=== PATIENT | female | born 1985 | race Caucasian/White ===

== ENCOUNTER 2021-06-28 09:18 | Inpatient (IN) ==
[2021-06-28] MEDS ORDERED: *HR* Propofol 200 MG/20 ML VIAL IVP ONE (09:39)
[2021-06-28] MEDS ORDERED: *HR* FentaNYL (PF) 100 MCG/2 ML VIAL ONE (09:39)
[2021-06-28] MEDS ORDERED: *HR* Succinylcholine 200 MG/10 ML VIAL IVP ONE (09:39)
[2021-06-28] MEDS ORDERED: *HR* Rocuronium Bromide 50 MG/5 ML VIAL ONE (09:39)
[2021-06-28] MEDS ORDERED: Acetaminophen IV 1,000 MG/100 ML BAG IVPB ONE (09:46)
[2021-06-28] MEDS ORDERED: Ketorolac 30 MG/ML VIAL ONE (09:46)
[2021-06-28] MEDS ORDERED: Ropivacaine/PF 0.2% 20 ML VIAL ONE ×2 (10:04→10:05)
[2021-06-28] MEDS ORDERED: Ondansetron 4 MG/2 ML VIAL ONE (10:06)
[2021-06-28] MEDS ORDERED: Ondansetron 4 MG/2 ML VIAL IVP PRN ×2 (10:48→13:03)
[2021-06-28] MEDS: *HR* HYDROmorphone PF 0.5 MG/0.5 ML SYRINGE IVP PRN ×4 (10:58→12:30)
[2021-06-28] MEDS ORDERED: Metoclopramide 10 MG/2 ML VIAL IVP ONE (11:01)
[2021-06-28] MEDS ORDERED: Ringers Solution, Lactated 1,000 ML IVC ONE (11:01)
[2021-06-28] MEDS ORDERED: Famotidine 20 MG/2 ML VIAL IVP ONE (11:01)
[2021-06-28] MEDS ORDERED: Ringers Solution, Lactated 1,000 ML IVC SCH (11:15)
[2021-06-28 11:32] LABS: Basophils % 0.2 %; Eosinophils % 0.1 %; Hematocrit 38.4 % (35.3-44.9); Hemoglobin 12.3 g/dL (11.5-15.4); Lymphocytes # 1.4 K/mcL (0.6-4.6); Lymphocytes % 7.6 %; Mean Corpuscular Hemoglobin 28.3 pg (28.0-33.3); Mean Corpuscular Volume 88.5 fL (83.0-100.0); Monocytes # 0.7 K/mcL (0.0-1.3); Monocytes % 3.7 %; Neutrophils # 15.8 K/mcL (1.6-8.9); Platelet Count 226 K/mcL (140-400); Red Blood Count 4.34 M/mcL (3.82-4.97); Red Cell Distribution Width 13.6 % (11.5-14.5); Segmented Neutrophils % 87.4 %; White Blood Count 18.1 K/mcL (4.3-11.1)
[2021-06-28 12:00] LABS: Alanine Aminotransferase 30 Units/L (7-52); Aspartate Amino Transferase 27 Units/L (13-39); BUN/Creatinine Ratio 13 (6-26); Blood Urea Nitrogen 8 mg/dL (6-20); Glucose 110 mg/dL (70-105); Lactate Dehydrogenase 160 Units/L (140-271); Uric Acid 5.4 mg/dL (2.3-7.6); eGFR For African Americans > 60 (> 60); eGFR For Non-African Americans > 60 (> 60)
[2021-06-28] MEDS ORDERED: Naloxone 0.4 MG/ML INJ IVP PRN ×2 (13:03)
[2021-06-28] MEDS ORDERED: Oxytocin 20 units/ LR 1000 mL 20 UNIT/1,000 ML BAG IVC SCH (13:03)
[2021-06-28] MEDS ORDERED: Simethicone 80 MG TAB.CHEW PO PRN (13:03)
[2021-06-28] MEDS ORDERED: Rho Immune Globulin 1,500 UNIT SYRINGE IM ONE (13:03)
[2021-06-28] MEDS ORDERED: Morphine PCA 30 MG/ 30 ML 30 ML PCA.VIAL IVC PRN (13:03)
[2021-06-28] MEDS ORDERED: 0.9 % Sodium Chloride 1,000 ML IVC SCH (13:03)
[2021-06-28] MEDS ORDERED: Metoclopramide 10 MG/2 ML VIAL IVP PRN (13:03)
[2021-06-28] MEDS ORDERED: Ibuprofen 600 MG TABLET PO SCH (13:19)
[2021-06-28 14:04] LABS: Amphetamine Screen,Urine Negative ng/mL (Cutoff=1000); Barbiturate Screen,Urine Negative ng/mL (Cutoff=200); Benzodiazepines Screen,Urine Negative ng/mL (Cutoff=200); Cannabinoid Screen,Urine Negative ng/mL (Cutoff = 50); Cocaine Screen,Urine Negative ng/mL (Cutoff= 300); Creatinine,Urine 123 mg/dL; Opiate Screen,Urine Negative ng/mL (Cutoff=300); Phencyclidine Screen,Urine Negative ng/mL (Cutoff=25); Protein/Creatinine Ratio,Urine 0.18 mg/mg (0.00-0.20)
[2021-06-28] MEDS: Acetaminophen 325 MG TABLET PO SCH (17:03)
[2021-06-28] MEDS: cephALEXin 500 MG CAPSULE PO SCH ×2 (17:04→19:41)
[2021-06-28] MEDS: metroNIDAZOLE 500 MG TABLET PO SCH ×2 (17:05→19:41)
[2021-06-28] MEDS: Oxytocin 20 units/ LR 1000 mL 20 UNIT/1,000 ML BAG IVC SCH (17:05)
[2021-06-28] MEDS: *HR* OxyCODONE Immed Rel 5 MG TABLET PO PRN (18:34)
[2021-06-28] MEDS: *HR* Enoxaparin 80 MG/0.8 ML SYRINGE SQ SCH (20:05)
[2021-06-29] MEDS: Acetaminophen 325 MG TABLET PO SCH ×5 (00:14→21:38)
[2021-06-29] MEDS: Oxytocin 20 units/ LR 1000 mL 20 UNIT/1,000 ML BAG IVC SCH (00:15)
[2021-06-29] MEDS: *HR* OxyCODONE Immed Rel 5 MG TABLET PO PRN ×3 (04:26→21:15)
[2021-06-29 06:41] LABS: Basophils % 0.2 %; Eosinophils % 0.2 %; Hematocrit 28.9 % (35.3-44.9); Immature Granulocytes % 0.7 % (0-4); Lymphocytes # 2.7 K/mcL (0.6-4.6); Lymphocytes % 17.8 %; Mean Corpuscular HGB Conc 32.9 g/dL (31.6-35.5); Mean Corpuscular Hemoglobin 28.7 pg (28.0-33.3); Mean Corpuscular Volume 87.3 fL (83.0-100.0); Mean Platelet Volume 10.6 fL (9.4-12.4); Monocytes # 0.9 K/mcL (0.0-1.3); Monocytes % 5.9 %; Neutrophils # 11.4 K/mcL (1.6-8.9); Platelet Count 203 K/mcL (140-400); Red Blood Count 3.31 M/mcL (3.82-4.97); Red Cell Distribution Width 13.5 % (11.5-14.5); Segmented Neutrophils % 75.2 %; White Blood Count 15.2 K/mcL (4.3-11.1)
[2021-06-29 06:42] LABS: Hemoglobin 9.5 g/dL (11.5-15.4)
[2021-06-29] MEDS: *HR* Enoxaparin 80 MG/0.8 ML SYRINGE SQ SCH ×2 (08:42→21:15)
[2021-06-29] MEDS: Prenatal Vit/FA 1 EACH TABLET PO SCH (08:43)
[2021-06-29] MEDS: metroNIDAZOLE 500 MG TABLET PO SCH ×3 (08:43→21:15)
[2021-06-29] MEDS: cephALEXin 500 MG CAPSULE PO SCH ×3 (08:43→21:15)
[2021-06-29] MEDS ORDERED: Ringers Solution, Lactated 500 ML IVC ONE (09:38)
[2021-06-30] MEDS: *HR* OxyCODONE Immed Rel 5 MG TABLET PO PRN ×3 (01:16→11:08)
[2021-06-30] MEDS: Acetaminophen 325 MG TABLET PO SCH ×2 (05:30→11:08)
[2021-06-30 07:48] VITALS: BP 110/59; PULSE 72; TEMP 98.3; O2SAT 96
[2021-06-30] MEDS: *HR* Enoxaparin 80 MG/0.8 ML SYRINGE SQ SCH (09:21)
[2021-06-30] MEDS: Prenatal Vit/FA 1 EACH TABLET PO SCH (09:22)
[2021-06-30] MEDS: metroNIDAZOLE 500 MG TABLET PO SCH (09:22)
[2021-06-30] MEDS: cephALEXin 500 MG CAPSULE PO SCH (09:22)
[2021-06-30] MEDS ORDERED: FLU Vac QV 21-22 (6Month+)/PF 0.5 ML SYRINGE IM ONE (12:06)
== END 2021-06-30 14:20 | disposition home or self-care (01) | DRG 540 ==
LOC: 1NENULAB 09:18 → 1NENUOBS 16:54
PROVIDERS: ADMIT Obstetrics & Gynecology; ATTEND Obstetrics & Gynecology